=== PATIENT | female | born 1995 | race Caucasian/White ===

== ENCOUNTER 2021-11-28 09:30 | Emergency (ER) | payer OTHER ==
[~2021-11-28] VITALS: Ht 162.6 cm; Wt 49.9 kg
[2021-11-28 09:50] VITALS: BP 103/77
--- NOTE | 2021-11-28 10:20 | NUR ---
SEEN AND EXAMINED BY .
[2021-11-28] MEDS ORDERED: LIDOCAINE /MPF 1% VIAL 5 ML VIAL ONE (10:27)
[2021-11-28] MEDS ORDERED: LIDOCAINE 1% INJ 50 ML MDV IJ ONE (10:30)
[2021-11-28] MEDS ORDERED: CEPH500C2 PO ×2 (10:48→11:39)
[2021-11-28] MEDS ORDERED: SULF1TAB48 PO ×2 (10:48→11:39)
--- NOTE | 2021-11-28 11:38 | NUR ---
I AND D DONE BY .
--- NOTE | 2021-11-28 11:41 | NUR ---
FIELD APPLICATIONS SPECIALIST AT BEDSIDE FOR DRESSING.
--- NOTE | 2021-11-28 11:46 | NUR ---
Patient discharged to home in stable condition. Written and verbal after care instructions given. Patient verbalizes understanding of instruction.
[2021-11-28] MEDS ORDERED: BACITRACIN ZINC OINT PACKET 1 EA PACKET TP ONE (12:00)
== END 2021-11-28 11:46 | disposition home or self-care (01) ==
LOC: ER 09:51
DX: L02.415 Cutaneous abscess of right lower limb (principal); Z85.22 Personal history of malignant neoplasm of nasal cavities, middle ear, and accessory sinuses; Z79.899 Other long term (current) drug therapy
CPT/HCPCS: 10061; 76882; 99284; A6403; A6407; J3490

== ENCOUNTER 2021-11-30 06:20 | Emergency (ER) | payer OTHER ==
[~2021-11-30] VITALS: Ht 162.6 cm; Wt 49.4 kg
[~2021-11-30 06:20] MED LIST: CEPH500C2 PO; SULF1TAB48 PO
[2021-11-30 06:29] VITALS: BP 124/74
--- NOTE | 2021-11-30 06:40 | NUR ---
ACCOMPANIED MD TO PATIENT ROOM FOR PACKING REMOVAL. PATIENT REFUSED RE-PACKING OF WOUND; MD MADE PATIENT AWARE OF IMPORATANCE OF COMPLIANCE AND PACKING OF WOUND; VERBALIZED RISK FACTORS, PATIENT STILL REFUSED; MD INSTRUCTED PATIENT TO KEEP AREA CLEAN.
== END 2021-11-30 07:01 | disposition home or self-care (01) ==
LOC: ER 06:29
DX: L02.415 Cutaneous abscess of right lower limb (principal); Z48.00 Encounter for change or removal of nonsurgical wound dressing; Z79.899 Other long term (current) drug therapy